=== PATIENT | female | born 1960 | race Caucasian/White ===

== ENCOUNTER 2021-12-30 19:35 | Emergency (ER) | payer OTHER, SELFPAY ==
[2021-12-30 19:41] VITALS: BP 148/92; PULSE 98; RESP 18; TEMP 37.1; O2SAT 100
[2021-12-30 20:05] VITALS: BP 169/107; PULSE 99; RESP 18; O2SAT 100
--- NOTE | 2021-12-30 20:42 | ED.GENADULT ---
HPI - General Adult General Chief complaint: Recheck/Abnormal Lab/Rx Stated complaint: hypertension Time Seen by Provider: 12/30/21 19:47 History of Present Illness HPI narrative: Patient is a healthy 61-year-old female here for evaluation of a rash to the left side of her neck under her left eye. Patient states the rash came on 2 days ago, is itchy, and has increased in size. She was outdoors prior to onset of the rash, and was handling a plant, but denies other new soaps, detergents, face products. She tried Alka without much relief of her symptoms. She denies any eye pain, changes to her vision, although her left eye is red and has increased tears. Was sent here from [facility] care clinic when she was found to be hypertensive. Denies history of hypertension. Related Data Allergies Allergy/AdvReac Type Severity Reaction Status Date / Time Penicillins Allergy Rash Verified 12/30/21 19:46 Review of Systems Review of Systems: Gen.: Denies fevers or chills Eyes: Reports eye redness and tearing ENT: Denies congestion Respiratory: Denies shortness of breath or cough CV: Denies chest pain or palpitations GI: Denies abdominal pain nausea, emesis or diarrhea denies burning, urgency, frequency or hematuria Musculoskeletal: Denies back pain or muscle pain Neuro: Denies numbness, tingling, weakness or focal weakness Skin: Reports rash Except as documented, all other systems reviewed and negative All systems reviewed & are unremarkable except as noted in HPI and below Exam Narrative: APPEARANCE: Well appearing, no pain in distress, well-nourished. Head: normocephalic and atraumatic. EYES: PERRLA/EOMI, conjunctivae clear NOSE: No nasal drainage EARS: Left eye is injected. No discharge noted. No pain with extraocular movements. Fluroscein exam without area of discrete uptake. Semaj sign negative. external ear normal in appearance. THROAT: Oropharynx is clear. Mucous membranes are moist. NECK: Supple. No adenopathy, no masses. RESPIRATORY: Airway patent, respirations nonlabored. Clear to auscultation bilaterally, no rales, rhonchi, wheezing. CARDIOVASCULAR: Regular rate and rhythm without murmurs, rubs, or gallops. ABDOMINAL: Normoactive bowel sounds. Soft, nontender, nondistended. No rebound tenderness or guarding. MUSCULOSKELETAL: Extremities are warm and well-perfused. Moves all extremities well. No edema. NEURO: Normal speech. No focal neurologic deficits. SKIN: Patient has a 1 cm, oval-shaped area of raised erythema to her left neck. She has 2 erythematous 0.5 cm circular patches under her left medial eye. PSYCHIATRIC: Normal affect/mood. Course Vital Signs Vital signs: Vital Signs Temperature 98.7 F 12/30/21 19:41 Pulse Rate 98 12/30/21 19:41 Respiratory Rate 18 12/30/21 19:41 Blood Pressure 148/92 H 12/30/21 19:41 Pulse Oximetry 100 12/30/21 19:41 Temperature 98.7 F 12/30/21 19:41 Pulse Rate 80 12/30/21 21:58 Respiratory Rate 16 12/30/21 21:58 Blood Pressure 158/93 H 12/30/21 21:58 Pulse Oximetry 100 12/30/21 21:58 Medical Decision Making MDM Narrative Medical decision making narrative: 61-year-old female here for evaluation of left eye redness and rash to her face and neck. Patient hypertensive, highest reading in ED was 169/107. Vital signs otherwise normal. Left eye is slightly injected and tearing likely due to allergic conjunctivitis; No recent eye trauma or suspected microtrauma (dust, sand, etc). Negative Semaj sign, no sign of corneal abrasion/ulcer on fluroscein exam. No history of crusty/ purulent discharge so less likely bacterial or viral conjunctivitis. No significant photophobia. Given history and exam I have low suspicion for globe rupture, uveitis, HSV keratitis, Endopthalmitist, Foreign Body. Prescribed artificial tears for eye, and provided with optometry follow up number. Rash appears to be allergic in nature, will treat with Benadryl and prednisone. Encouraged foll
[2021-12-30] MEDS: diphenhydrAMINE HCl CAP 25 MG CAPSULE PO (20:58)
[2021-12-30] MEDS: predniSONE 20 MG TABLET 40 MG PO (20:58)
[2021-12-30 21:38] VITALS: BP 158/93; PULSE 91; RESP 16; O2SAT 98
[2021-12-30 21:58] VITALS: BP 158/93; PULSE 80; RESP 16; O2SAT 100
== END 2021-12-30 21:57 | disposition home or self-care (01) ==
PROVIDERS: Emergency Provider Emergency Medicine
DX: T78.40XA Allergy, unspecified, initial encounter (principal); R03.0 Elevated blood-pressure reading, without diagnosis of hypertension
CPT/HCPCS: 99283; A9270; J7512